=== PATIENT | male | born 1955 | race Asian ===

== ENCOUNTER 2023-05-12 06:55 | Emergency (ER) | payer MEDICARE, MEDICAID ==
[~2023-05-12] VITALS: Ht 162.6 cm; Wt 66.4 kg
[2023-05-12 06:56] VITALS: TEMP 98.4
[2023-05-12] MEDS ORDERED: ALBU18HF12 IH (07:01)
[2023-05-12] MEDS ORDERED: INSLAN SQ (07:01)
[2023-05-12] MEDS ORDERED: DAPA5TAB PO (07:01)
[2023-05-12] MEDS ORDERED: EMPA10TA3 PO (07:01)
[2023-05-12] MEDS ORDERED: SEMA0.258 SQ (07:01)
[2023-05-12 07:13] VITALS: PULSE 110; RESP 36; O2SAT 93
[2023-05-12] MEDS ORDERED: MethylPREDNISolone SOD SUCC 125 MG/2 ML VIAL IVP ONE (07:15)
[2023-05-12] MEDS ORDERED: IPRATROPIUM BROMIDE 0.5 MG/2.5 ML NEB SOLUTION NEB ONE (07:15)
[2023-05-12] MEDS ORDERED: ALBUTEROL SULFATE 2.5 MG/0.5 ML NEB SOLUTION NEB ONE (07:15)
[2023-05-12 07:21] LABS: BASOPHILS % (AUTO) 0.3 % (0.0-2.0); EOSINOPHILS % (AUTO) 2.2 % (1.0-6.0); HEMATOCRIT 39.7 % (41-53); HEMOGLOBIN 13.2 g/dL (13.5-17.5); LYMPHOCYTES # (AUTO) 0.5 K/uL (1.0-4.8); LYMPHOCYTES % (AUTO) 6.1 % (22.0-44.0); MEAN CORPUSCULAR HEMOGLOBIN 27.4 pg (26.0-34.0); MEAN CORPUSCULAR HGB CONC 33.2 G/dL (31.0-37.0); MEAN CORPUSCULAR VOLUME 82 fL (80-100); MONOCYTES # (AUTO) 0.7 K/uL (0.1-1.0); MONOCYTES % (AUTO) 8.3 % (2.0-9.0); NEUTROPHILS # (AUTO) 7.5 K/uL (1.8-7.7); NEUTROPHILS % (AUTO) 83.1 % (40.0-70.0); PLATELET COUNT (AUTO) 185 K/uL (150-450); RED BLOOD CELL COUNT(AUTO) 4.81 MIL/uL (4.50-5.90); RED CELL DISTRIBUTION WIDTH 13.8 % (11.5-14.5); WHITE BLOOD COUNT (AUTO) 9.1 K/uL (4.5-11.0)
[2023-05-12 07:28] VITALS: PULSE 106; RESP 32; O2SAT 100
[2023-05-12 07:43] LABS: ANION GAP 9 mmol/L (8-16); CALCIUM, TOTAL 8.6 mg/dL (8.8-10.5); CARBON DIOXIDE 28 mmol/L (22-29); CHLORIDE 102 mmol/L (98-107); CREATININE 0.72 mg/dL (0.60-1.30); GLOMERULAR FILTR. RATE CALC > 60 mL/min (>60); GLUCOSE,RANDOM 130 mg/dL (70-110); POTASSIUM 4.2 mmol/L (3.5-5.1); SODIUM SERUM 139 mmol/L (136-145); UREA NITROGEN, BLOOD 16 mg/dL (7-18)
[2023-05-12 07:45] LABS: COVID AG,FIA SOURCE NASAL SWAB
[2023-05-12 07:47] LABS: TROPONIN I-HIGH SENSITIVITY 7 ng/L (<76)
[2023-05-12 08:01] LABS: SARS-COV2 (COVID) ANTIGEN,FIA Negative (Negative)
[2023-05-12 08:22] LABS: INFLUENZA TYPE A NEGATIVE FOR TYPE A (NEGATIVE); INFLUENZA TYPE B NEGATIVE FOR TYPE B (NEGATIVE); RESPIRATORY SYNCYTIAL VIRS,FIA NEGATIVE (Negative)
[2023-05-12] MEDS ORDERED: BENZ-227 PO (08:31)
[2023-05-12] MEDS ORDERED: PRED-554 PO (08:31)
[2023-05-12 08:49] VITALS: BP 128/68; PULSE 100; RESP 16
== END 2023-05-12 09:10 | disposition home or self-care (01) ==
LOC: EMS 06:55
DX: J45.909 Unspecified asthma, uncomplicated (principal); E11.9 Type 2 diabetes mellitus without complications; Z20.822 Contact with and (suspected) exposure to COVID-19
CPT/HCPCS: 99285; 96374; 71045; 87426; 80048; 82962; 87420; 84484; 85025; 87804; 36415; 94640; 93005; J2930; J7613

== ENCOUNTER 2023-07-16 17:13 | Emergency (ER) | payer MEDICARE, MEDICAID ==
[~2023-07-16] VITALS: Ht 162.6 cm; Wt 63.6 kg
[~2023-07-16 17:13] MED LIST: ALBU18HF12 IH; BENZ-227 PO; DAPA5TAB PO; EMPA10TA3 PO; INSLAN SQ; PRED-554 PO; SEMA0.258 SQ
[2023-07-16 17:22] VITALS: TEMP 98.2
[2023-07-16] MEDS ORDERED: DAPA10TA PO (17:38)
[2023-07-16] MEDS ORDERED: GABA-529 PO (17:38)
[2023-07-16] MEDS ORDERED: LOSA100T59 PO (17:38)
[2023-07-16] MEDS ORDERED: INSU3INS3 SQ (17:38)
[2023-07-16] MEDS ORDERED: ATOR40TA71 PO (17:38)
[2023-07-16] MEDS ORDERED: METF-446 PO (17:38)
[2023-07-16 17:52] VITALS: PULSE 95; RESP 26; O2SAT 98
[2023-07-16] MEDS: ALBUTEROL SULFATE 2.5 MG/0.5 ML NEB SOLUTION NEB ONE ×2 (17:52→18:39)
[2023-07-16] MEDS: IPRATROPIUM BROMIDE 0.5 MG/2.5 ML NEB SOLUTION NEB ONE ×2 (17:52→20:07)
[2023-07-16 17:53] VITALS: PULSE 95; RESP 26; O2SAT 98
[2023-07-16 17:53] LABS: BASOPHILS % (AUTO) 1.3 % (0.0-2.0); EOSINOPHILS % (AUTO) 11.9 % (1.0-6.0); HEMATOCRIT 42.4 % (41-53); HEMOGLOBIN 13.9 g/dL (13.5-17.5); LYMPHOCYTES # (AUTO) 2.3 K/uL (1.0-4.8); LYMPHOCYTES % (AUTO) 29.8 % (22.0-44.0); MEAN CORPUSCULAR HEMOGLOBIN 27.1 pg (26.0-34.0); MEAN CORPUSCULAR HGB CONC 32.9 G/dL (31.0-37.0); MEAN CORPUSCULAR VOLUME 82 fL (80-100); MONOCYTES # (AUTO) 0.9 K/uL (0.1-1.0); MONOCYTES % (AUTO) 12.4 % (2.0-9.0); NEUTROPHILS # (AUTO) 3.4 K/uL (1.8-7.7); NEUTROPHILS % (AUTO) 44.6 % (40.0-70.0); PLATELET COUNT (AUTO) 214 K/uL (150-450); RED BLOOD CELL COUNT(AUTO) 5.16 MIL/uL (4.50-5.90); RED CELL DISTRIBUTION WIDTH 13.8 % (11.5-14.5); WHITE BLOOD COUNT (AUTO) 7.6 K/uL (4.5-11.0)
[2023-07-16] MEDS: MethylPREDNISolone SOD SUCC 125 MG/2 ML VIAL IVP ONE (17:55)
[2023-07-16 17:58] LABS: COVID AG,FIA SOURCE NASAL SWAB
[2023-07-16 18:02] LABS: ANION GAP 10 mmol/L (8-16); CALCIUM, TOTAL 9.2 mg/dL (8.8-10.5); CARBON DIOXIDE 26 mmol/L (22-29); CHLORIDE 102 mmol/L (98-107); CREATININE 0.76 mg/dL (0.60-1.30); GLOMERULAR FILTR. RATE CALC > 60 mL/min (>60); GLUCOSE,RANDOM 130 mg/dL (70-110); SODIUM SERUM 138 mmol/L (136-145); UREA NITROGEN, BLOOD 14 mg/dL (7-18)
[2023-07-16 18:11] LABS: B-TYPE NATRIURETIC PEPTIDE 16 pg/mL (0-100)
[2023-07-16 18:12] LABS: TROPONIN I-HIGH SENSITIVITY 6 ng/L (<76)
[2023-07-16 18:17] LABS: SARS-COV2 (COVID) ANTIGEN,FIA Negative (Negative)
[2023-07-16 18:18] LABS: INFLUENZA TYPE A NEGATIVE FOR TYPE A (NEGATIVE); INFLUENZA TYPE B NEGATIVE FOR TYPE B (NEGATIVE)
[2023-07-16 18:18] LABS: ALANINE AMINOTRANSFERASE 32 U/L (12-78); ALBUMIN 4.3 g/dL (3.4-5.0); ALKALINE PHOSPHATASE 92 U/L (46-116); ASPARTATE AMINOTRANSFERASE 25 U/L (15-37); BILIRUBIN,TOTAL 0.4 mg/dL (0.1-1.0); CREATINE KINASE, TOTAL ONLY 231 U/L (39-308); TOTAL PROTEIN, SERUM 7.8 g/dL (6.4-8.2)
[2023-07-16] MEDS: ALBUTEROL SULFATE 2.5 MG/0.5 ML 5 ML NEB SOLUTION NEB ONE (20:10)
[2023-07-16 20:12] VITALS: PULSE 74; RESP 26; O2SAT 91
[2023-07-16 20:22] LABS: TROPONIN I-HIGH SENSITIVITY 8 ng/L (<76)
[2023-07-16 20:28] VITALS: PULSE 104; RESP 25; O2SAT 97
[2023-07-16 20:34] VITALS: BP 153/80; PULSE 90; RESP 24
[2023-07-16] MEDS ORDERED: BECL10.62 IH (21:24)
[2023-07-16] MEDS ORDERED: PRED-554 PO (21:24)
== END 2023-07-16 21:33 | disposition home or self-care (01) ==
LOC: EMS 17:14
DX: R06.03 Acute respiratory distress (principal); J44.9 Chronic obstructive pulmonary disease, unspecified; E11.9 Type 2 diabetes mellitus without complications; Z20.822 Contact with and (suspected) exposure to COVID-19
CPT/HCPCS: 80053; 82550; 83880; 84484; 85025; 87804; 36415; 94640; 71045; 99285; 93005; 87426; J2930; Q9967; J7613

== ENCOUNTER 2024-05-25 08:21 | Emergency (ER) | payer MEDICARE, MEDICAID ==
[~2024-05-25] VITALS: Ht 162.6 cm; Wt 63.6 kg
[~2024-05-25 08:21] MED LIST changes: +ATOR40TA71 PO; +BECL10.62 IH; -BENZ-227 PO; +DAPA10TA PO; -DAPA5TAB PO; -EMPA10TA3 PO; +GABA-529 PO; -INSLAN SQ; +INSU3INS3 SQ; +LOSA100T59 PO; +METF-446 PO
[2024-05-25] MEDS: SODIUM CHLORIDE 0.9% 1,000 ML IV ONE ×2 (08:40→10:52)
[2024-05-25] MEDS: ACETAMINOPHEN 500 MG TABLET PO ONE (08:40)
[2024-05-25] MEDS ORDERED: 0.9% SODIUM CHLORIDE 10 ML SYRINGE IVP PRN (08:45)
[2024-05-25 09:03] LABS: BASOPHILS % (AUTO) 0.5 % (0.0-2.0); EOSINOPHILS % (AUTO) 0.7 % (1.0-6.0); HEMATOCRIT 40.9 % (41-53); HEMOGLOBIN 13.9 g/dL (13.5-17.5); LYMPHOCYTES # (AUTO) 0.5 K/uL (1.0-4.8); LYMPHOCYTES % (AUTO) 4.7 % (22.0-44.0); MEAN CORPUSCULAR HEMOGLOBIN 27.6 pg (26.0-34.0); MEAN CORPUSCULAR HGB CONC 33.9 G/dL (31.0-37.0); MEAN CORPUSCULAR VOLUME 81 fL (80-100); MONOCYTES # (AUTO) 0.8 K/uL (0.1-1.0); MONOCYTES % (AUTO) 6.9 % (2.0-9.0); NEUTROPHILS # (AUTO) 10.1 K/uL (1.8-7.7); PLATELET COUNT (AUTO) 195 K/uL (150-450); RED BLOOD CELL COUNT(AUTO) 5.03 MIL/uL (4.50-5.90); RED CELL DISTRIBUTION WIDTH 13.5 % (11.5-14.5); WHITE BLOOD COUNT (AUTO) 11.5 K/uL (4.5-11.0)
[2024-05-25 09:10] LABS: NEUTROPHILS % (AUTO) 87.2 % (40.0-70.0)
[2024-05-25 09:20] LABS: ANION GAP 7 mmol/L (8-16); CALCIUM, TOTAL 8.5 mg/dL (8.8-10.5); CARBON DIOXIDE 29 mmol/L (22-29); CHLORIDE 102 mmol/L (98-107); CREATININE 0.76 mg/dL (0.60-1.30); GLOMERULAR FILTR. RATE CALC > 60 mL/min (>60); GLUCOSE,RANDOM 125 mg/dL (70-110); POTASSIUM 4.1 mmol/L (3.5-5.1); SODIUM SERUM 138 mmol/L (136-145); UREA NITROGEN, BLOOD 10 mg/dL (7-18)
[2024-05-25 09:27] LABS: COVID AG,FIA SOURCE NASAL SWAB
[2024-05-25 09:29] LABS: LACTIC ACID 1.4 mmol/L (0.4-2.0)
[2024-05-25 09:31] LABS: TROPONIN I-HIGH SENSITIVITY 5 ng/L (<76)
[2024-05-25 09:34] LABS: SARS-COV2 (COVID) ANTIGEN,FIA Negative (Negative)
[2024-05-25 09:34] LABS: B-TYPE NATRIURETIC PEPTIDE 29 pg/mL (0-100)
[2024-05-25 09:35] LABS: INFLUENZA TYPE A NEGATIVE FOR TYPE A (NEGATIVE); INFLUENZA TYPE B NEGATIVE FOR TYPE B (NEGATIVE)
[2024-05-25 09:47] VITALS: BP 156/74; PULSE 98; RESP 16; TEMP 100.9; O2SAT 98
[2024-05-25] MEDS: IBUPROFEN 400 MG TABLET PO ONE (09:59)
[2024-05-25] MEDS: CefTRIAXone 1 GM/DEXTROSE 50 ML IV ONE (10:52)
[2024-05-25 10:53] LABS: APPEARANCE,URINE CLEAR (CLEAR); BILIRUBIN,URINE NEGATIVE (NEGATIVE); COLOR,URINE LIGHT YELLOW (YELLOW); GLUCOSE, URINE (UA) >=1000 mg/dL (NEGATIVE); KETONES,URINE NEGATIVE (NEGATIVE); LEUKOCYTE ESTERASE ,URINE NEGATIVE (NEGATIVE); NITRATE,URINE NEGATIVE (NEGATIVE); OCCULT BLOOD,URINE TRACE (NEGATIVE); PH,URINE 7.5 (5.0-8.0); PROTEIN,URINE NEGATIVE (NEGATIVE); SPECIFIC GRAVITIY, URINE 1.018 (1.003-1.030); UROBILINOGEN,URINE <=1.0 mg/dL (<=1.0)
[2024-05-25 11:08] LABS: BACTERIA,URINE None Seen /HPF (None Seen); RBC,URINE 0-2 /HPF (0-2); SQUAMOUS EPITHELIAL CELL,UR Few /LPF (None Seen); WBC,URINE None Seen /HPF (0-5)
== END 2024-05-25 11:48 | disposition home or self-care (01) ==
LOC: EMS 08:23
DX: J06.9 Acute upper respiratory infection, unspecified (principal); B97.89 Other viral agents as the cause of diseases classified elsewhere; R53.1 Weakness; J45.909 Unspecified asthma, uncomplicated; E11.9 Type 2 diabetes mellitus without complications; R51.9 Headache, unspecified; Z20.822 Contact with and (suspected) exposure to COVID-19; Z79.4 Long term (current) use of insulin; Z79.51 Long term (current) use of inhaled steroids; Z79.52 Long term (current) use of systemic steroids; Z79.84 Long term (current) use of oral hypoglycemic drugs; Z79.85 Long-term (current) use of injectable non-insulin antidiabetic drugs; Z79.899 Other long term (current) drug therapy
CPT/HCPCS: 99285; 96365; 70450; 71045; 96361; 87426; 80048; 81001; 83605; 83735; 83880; 84484; 85025; 87040; 87804; 36415; 93005; 51701; 84145; J0696; J7030